=== PATIENT | female | born 1970 | race Caucasian/White ===

== ENCOUNTER 2017-01-07 13:17 | Emergency (ER) | payer OTHER ==
[~2017-01-07] VITALS: Ht 162.6 cm; Wt 97.7 kg
[~2017-01-07 13:17] MED LIST: ALPR1TAB2 PO; IBUP-1223 PO; OXYC20TA2 PO
[2017-01-07] MEDS ORDERED: ONDANSETRON 2MG/ML, 2ML IVPush ONE (15:00)
[2017-01-07] MEDS ORDERED: FAMOTIDINE 20 MG/2 ML IVP ONE (15:00)
[2017-01-07] MEDS ORDERED: SODIUM CHLORIDE FLUSH 10ML SYR IVF ONE (15:00)
[2017-01-07] MEDS ORDERED: SODIUM CHLORIDE 0.9% 1,000ML IVBOLUS ONE (15:00)
[2017-01-07] MEDS ORDERED: ONDANSETRON 2MG/ML, 2ML ONE (15:13)
[2017-01-07] MEDS ORDERED: FAMOTIDINE 20 MG/2 ML ONE (15:13)
[2017-01-07] MEDS ORDERED: ALPR2TAB2 PO (15:30)
[2017-01-07] MEDS ORDERED: LISI-170 PO (15:30)
[2017-01-07] MEDS ORDERED: HYDR25TA6 PO (15:30)
[2017-01-07] MEDS ORDERED: ZOLP10TA PO (15:30)
[2017-01-07 15:33] LABS: HEMATOCRIT 38.9 % (34.6-47.8); HEMOGLOBIN 13.1 g/dL (11.7-16.4); WHITE BLOOD COUNT 9.5 x10^3/uL (3.4-10)
[2017-01-07 15:51] LABS: ASPARTATE AMINO TRANSFERASE 17 U/L (15-37); BLOOD UREA NITROGEN 14 mg/dL (7-18)
[2017-01-07 16:30] VITALS: BP 118/78
== END 2017-01-07 16:34 | disposition home or self-care (01) ==
LOC: ED 16:20
DX: R10.12 Left upper quadrant pain (principal); R19.7 Diarrhea, unspecified; R11.2 Nausea with vomiting, unspecified; I10 Essential (primary) hypertension
CPT/HCPCS: 36415; 80053; 81003; 83690; 84703; 85025; 93005; 96361; 96374; 96375; 99285; J2405; J7030; S0028

== ENCOUNTER 2017-05-02 08:20 | Inpatient (IN) | payer OTHER ==
[~2017-05-02] VITALS: Ht 162.6 cm; Wt 98.0 kg
[~2017-05-02 08:20] MED LIST changes: +ALPR2TAB2 PO; +HYDR25TA6 PO; +LISI-170 PO; +ZOLP10TA PO
[2017-05-02] MEDS ORDERED: ONDANSETRON 2MG/ML, 2ML ONE ×2 (09:50→12:41)
[2017-05-02] MEDS ORDERED: FAMOTIDINE 20 MG/2 ML ONE (09:50)
[2017-05-02] MEDS ORDERED: ONDANSETRON 2MG/ML, 2ML IVPush ONE ×2 (10:00→13:00)
[2017-05-02] MEDS ORDERED: SODIUM CHLORIDE FLUSH 10ML SYR IVF ONE (10:00)
[2017-05-02] MEDS ORDERED: SODIUM CHLORIDE 0.9% 1,000ML IVBOLUS ONE (10:00)
[2017-05-02] MEDS ORDERED: FAMOTIDINE 20 MG/2 ML IVP ONE (10:00)
[2017-05-02 10:10] LABS: HEMATOCRIT 42.7 % (34.6-47.8); HEMOGLOBIN 14.6 g/dL (11.7-16.4); WHITE BLOOD COUNT 15.2 x10^3/uL (3.4-10)
[2017-05-02 10:13] LABS: BLOOD UREA NITROGEN 37 mg/dL (7-18)
[2017-05-02 10:16] LABS: ASPARTATE AMINO TRANSFERASE 10 U/L (15-37)
[2017-05-02] MEDS ORDERED: POTASSIUM CHLORIDE 10% 20 MEQ/15 ML UDC ONE (11:55)
[2017-05-02] MEDS ORDERED: POTASSIUM CHLORIDE 10% 40 MEQ/30 ML UDC PO ONE (12:00)
[2017-05-02] MEDS ORDERED: MAGNESIUM SULFATE 1 GM in SODIUM CHLORIDE 0.9% 50 ML IV ONE (12:00)
[2017-05-02] MEDS ORDERED: POTASSIUM CHLORIDE 40 MEQ in SODIUM CHLORIDE 0.9% 1,000 ML IV ONE (14:16)
[2017-05-02] MEDS ORDERED: NS + 40MEQ KCL 1,000 ML IV ONE (14:31)
[2017-05-02] MEDS ORDERED: PROMETHAZINE 25 MG/ML, 1ML ONE (14:48)
[2017-05-02] MEDS ORDERED: KETOROLAC 30 MG/1 ML ONE (14:49)
[2017-05-02] MEDS ORDERED: PROMETHAZINE 25 MG/ML, 1ML IM ONE (15:00)
[2017-05-02] MEDS ORDERED: KETOROLAC 30 MG/1 ML IVPush ONE (15:00)
[2017-05-02] MEDS ORDERED: SODIUM CHLORIDE 0.9% 1,000 ML IV SCH (15:32)
[2017-05-02] MEDS ORDERED: PROMETHAZINE 12.5 MG SUPP PR PRN (16:00)
[2017-05-02] MEDS ORDERED: ACETAMINOPHEN 325 MG TABLET PO PRN (16:00)
[2017-05-02] MEDS ORDERED: LABETALOL 5MG/ML, 20ML IVPush PRN (16:00)
[2017-05-02] MEDS ORDERED: ONDANSETRON ODT 4 MG PO PRN (16:00)
[2017-05-02] MEDS ORDERED: DOCUSATE 100 MG CAPSULE PO PRN (16:00)
[2017-05-02] MEDS ORDERED: ONDANSETRON 2MG/ML, 2ML IVPush PRN (16:00)
[2017-05-02] MEDS ORDERED: PHARMACY MAY ADJ FOR RENAL FX MC PRN (16:00)
[2017-05-02 18:28] VITALS: BP 129/78
[2017-05-02] MEDS: NS + 40MEQ KCL 1,000 ML IV SCH (20:56)
[2017-05-02] MEDS: HEPARIN 5,000 UNITS/ML, 1ML SQ SCH (21:05)
[2017-05-02] MEDS: FAMOTIDINE 20 MG/2 ML IVPush SCH (21:06)
[2017-05-02] MEDS: ZOLPIDEM 10MG TABLET PO PRN (21:06)
[2017-05-03 01:32] VITALS: BP 95/60
[2017-05-03] MEDS: HEPARIN 5,000 UNITS/ML, 1ML SQ SCH ×3 (05:05→23:00)
[2017-05-03 05:36] LABS: HEMATOCRIT 37.6 % (34.6-47.8); HEMOGLOBIN 12.7 g/dL (11.7-16.4); WHITE BLOOD COUNT 9.4 x10^3/uL (3.4-10)
[2017-05-03 05:39] LABS: BLOOD UREA NITROGEN 24 mg/dL (7-18)
[2017-05-03 06:59] VITALS: BP 152/95
[2017-05-03] MEDS: NS + 40MEQ KCL 1,000 ML IV SCH (10:20)
[2017-05-03] MEDS: FAMOTIDINE 20 MG/2 ML IVPush SCH ×2 (10:21→20:38)
[2017-05-03 13:09] VITALS: BP 100/69
[2017-05-03] MEDS: SODIUM CHLORIDE 0.9% 1,000 ML IV SCH (17:05)
[2017-05-03] MEDS ORDERED: FLU VACC QS2017-18 (36MOS+) UP/PF 0.5 ML IM-VACC ONE (17:30)
[2017-05-03 19:31] VITALS: BP 128/78
[2017-05-03] MEDS: ZOLPIDEM 10MG TABLET PO PRN (20:38)
[2017-05-04 00:38] VITALS: BP 120/80
[2017-05-04] MEDS: SODIUM CHLORIDE 0.9% 1,000 ML IV SCH (02:33)
[2017-05-04 05:54] LABS: ASPARTATE AMINO TRANSFERASE 8 U/L (15-37); BLOOD UREA NITROGEN 14 mg/dL (7-18)
[2017-05-04 05:56] LABS: HEMATOCRIT 32.9 % (34.6-47.8); HEMOGLOBIN 11.1 g/dL (11.7-16.4); WHITE BLOOD COUNT 9.3 x10^3/uL (3.4-10)
[2017-05-04] MEDS: HEPARIN 5,000 UNITS/ML, 1ML SQ SCH (07:27)
[2017-05-04] MEDS: FAMOTIDINE 20 MG/2 ML IVPush SCH (07:28)
[2017-05-04 07:56] VITALS: BP 109/69
== END 2017-05-04 12:37 | disposition home or self-care (01) | DRG 391 ==
LOC: ED 10:47 → EDIP 15:32 → 3NE 16:37
PROVIDERS: ADMIT Internal Medicine; ATTEND Internal Medicine
DX: K52.9 Noninfective gastroenteritis and colitis, unspecified (principal); N17.0 Acute kidney failure with tubular necrosis; E87.1 Hypo-osmolality and hyponatremia; E87.6 Hypokalemia; E86.0 Dehydration; D72.829 Elevated white blood cell count, unspecified; F12.90 Cannabis use, unspecified, uncomplicated; F17.210 Nicotine dependence, cigarettes, uncomplicated; F41.9 Anxiety disorder, unspecified; G47.00 Insomnia, unspecified; I10 Essential (primary) hypertension; K21.9 Gastro-esophageal reflux disease without esophagitis; G89.29 Other chronic pain; R11.2 Nausea with vomiting, unspecified
CPT/HCPCS: 36415; 74020; 74176; 80048; 80053; 81003; 83690; 83735; 84100; 84703; 85025; 90686; 96361; 96365; 96366; 96367; 96375; 96376; J1644; J1885; J2405; J2550; J3475; J3480; J7030; S0028

== ENCOUNTER 2017-05-06 05:05 | Emergency (ER) | payer SELFPAY ==
[~2017-05-06] VITALS: Ht 162.6 cm; Wt 90.9 kg
[2017-05-06] MEDS ORDERED: ONDANSETRON 2MG/ML, 2ML ONE (05:51)
[2017-05-06] MEDS ORDERED: FAMOTIDINE 20 MG/2 ML ONE (05:51)
[2017-05-06 05:59] LABS: HEMATOCRIT 41.1 % (34.6-47.8); HEMOGLOBIN 14.2 g/dL (11.7-16.4); WHITE BLOOD COUNT 11.5 x10^3/uL (3.4-10)
[2017-05-06] MEDS ORDERED: HYDROmorphone 2 MG/ML, 1ML IVPush PRN (06:00)
[2017-05-06] MEDS ORDERED: FAMOTIDINE 20 MG/2 ML IVP ONE (06:00)
[2017-05-06] MEDS ORDERED: ONDANSETRON 2MG/ML, 2ML IVPush ONE (06:00)
[2017-05-06] MEDS ORDERED: SODIUM CHLORIDE 0.9% 1,000ML IVBOLUS ONE (06:00)
[2017-05-06] MEDS ORDERED: SODIUM CHLORIDE FLUSH 10ML SYR IVF ONE (06:00)
[2017-05-06 06:04] LABS: BLOOD UREA NITROGEN 12 mg/dL (7-18)
[2017-05-06 06:11] LABS: ASPARTATE AMINO TRANSFERASE 12 U/L (15-37)
[2017-05-06] MEDS ORDERED: MAALOX/HYOSCYAMINE/LIDOCAINE 45 ML BTL PO ONE (06:30)
[2017-05-06 06:43] LABS: PATH.CAST-FLAG NOT PRESENT; SPERM-FLAG NOT PRESENT; SRC-FLAG NOT PRESENT; XTAL-FLAG NOT PRESENT; YLC-FLAG NOT PRESENT
[2017-05-06] MEDS ORDERED: DIPHENHYDRAMINE 50 MG/ML, 1ML ONE (07:42)
[2017-05-06] MEDS ORDERED: PROCHLORPERAZINE 5 MG/ML, 2ML ONE (07:42)
[2017-05-06] MEDS ORDERED: MAALOX/HYOSCYAMINE/LIDOCAINE 45 ML BTL ONE (07:43)
[2017-05-06] MEDS ORDERED: DIPHENHYDRAMINE 50 MG/ML, 1ML IVPush ONE (08:00)
[2017-05-06] MEDS ORDERED: PROCHLORPERAZINE 5 MG/ML, 2ML IVPush ONE (08:00)
[2017-05-06 08:57] VITALS: BP 171/97
== END 2017-05-06 09:13 | disposition home or self-care (01) ==
LOC: ED 07:16
DX: G89.29 Other chronic pain (principal); R10.33 Periumbilical pain; I10 Essential (primary) hypertension
CPT/HCPCS: 36415; 76700; 80053; 81001; 83690; 84703; 85025; 96361; 96374; 96375; 99285; J0780; J1200; J2405; J7030; S0028

== ENCOUNTER 2017-05-31 11:41 | Emergency (ER) | payer SELFPAY ==
[~2017-05-31] VITALS: Ht 162.6 cm; Wt 98.2 kg
[2017-05-31 11:42] VITALS: BP 167/90
[2017-05-31] MEDS ORDERED: KETOROLAC 30 MG/1 ML ONE (11:59)
[2017-05-31] MEDS ORDERED: HYDROcodone/APAP 10/325 MG TABLET ONE (11:59)
[2017-05-31] MEDS ORDERED: ONDANSETRON ODT 4 MG ONE (11:59)
[2017-05-31] MEDS ORDERED: ONDANSETRON ODT 4 MG PO ONE (12:00)
[2017-05-31] MEDS ORDERED: KETOROLAC 30 MG/1 ML IM ONE (12:00)
[2017-05-31] MEDS ORDERED: HYDROcodone/APAP 10/325 MG TABLET PO ONE (12:00)
== END 2017-05-31 13:45 | disposition home or self-care (01) ==
LOC: ED 12:15
DX: S83.92XA Sprain of unspecified site of left knee, initial encounter (principal); S70.01XA Contusion of right hip, initial encounter; F17.210 Nicotine dependence, cigarettes, uncomplicated; W01.0XXA Fall on same level from slipping, tripping and stumbling without subsequent striking against object, initial encounter; Y93.89 Activity, other specified; Y92.099 Unspecified place in other non-institutional residence as the place of occurrence of the external cause; Y99.8 Other external cause status
CPT/HCPCS: 73502; 73564; 96372; 99284; J1885; Q0162

== ENCOUNTER 2018-07-29 17:17 | Emergency (ER) | payer OTHER ==
[~2018-07-29] VITALS: Ht 162.6 cm; Wt 100.0 kg
[2018-07-29 17:20] VITALS: BP 157/109
== END 2018-07-29 18:31 | disposition home or self-care (01) ==
LOC: ED 18:25
DX: J02.9 Acute pharyngitis, unspecified (principal); J04.0 Acute laryngitis; J01.90 Acute sinusitis, unspecified
CPT/HCPCS: 71045; 87081; 87880; 99284

== ENCOUNTER 2019-07-13 16:32 | Emergency (ER) | payer SELFPAY ==
[~2019-07-13] VITALS: Ht 162.6 cm; Wt 104.7 kg
[2019-07-13 17:21] VITALS: BP 179/81
[2019-07-13 17:56] LABS: RAPID INFLUENZA A Negative (Negative); RAPID INFLUENZA B Negative (Negative)
--- NOTE | 2019-07-13 18:39 | NUR ---
Patient given discharge instructions and they have confirmed that they understand the instructions. Patient ambulatory with steady gait. Pt left with d/c paperwork, Rx, and all personal belongings.
== END 2019-07-13 18:46 | disposition home or self-care (01) ==
LOC: ED 18:15
DX: J18.0 Bronchopneumonia, unspecified organism (principal); I10 Essential (primary) hypertension; K21.9 Gastro-esophageal reflux disease without esophagitis
CPT/HCPCS: 71046; 87400; 99284

== ENCOUNTER 2019-08-04 17:36 | Emergency (ER) | payer OTHER ==
[~2019-08-04] VITALS: Ht 162.6 cm; Wt 106.6 kg
[2019-08-04] MEDS ORDERED: SODIUM CHLORIDE FLUSH 10ML SYR IVF ONE (18:00)
[2019-08-04 18:27] LABS: BASOPHILS # (AUTO) 0.04 x10^3/uL (0-0.1); BASOPHILS % (AUTO) 0 % (0-1); EOSINOPHILS # (AUTO) 0.32 x10^3/uL (0-0.4); EOSINOPHILS % (AUTO) 3 % (1-7); LYMPHOCYTES # (AUTO) 2.82 x10^3/uL (1-3.4); LYMPHOCYTES % (AUTO) 28 % (22-44); MD NO; MEAN CORPUSCULAR HEMOGLOBIN 26.7 pg (27.0-34.8); MEAN CORPUSCULAR HGB CONC 33.2 g/dL (32.4-35.8); MEAN CORPUSCULAR VOLUME 80.4 fL (80-100); MEAN PLATELET VOLUME 8.7 fL (7.4-10.4); MONOCYTES # (AUTO) 0.65 x10^3/uL (0.2-0.8); MONOCYTES % (AUTO) 7 % (2-9); NEUTROPHILS % (AUTO) 61 % (42-75); PLATELET COUNT 278 x10^3/uL (130-400); RED BLOOD COUNT 4.63 x10^6/uL (3.82-5.3)
[2019-08-04 18:34] LABS: ANION GAP 6 mmol/L (5-15); CALCIUM 9.1 mg/dL (8.5-10.1); CHLORIDE 109 mmol/L (98-107); CREATININE 0.65 mg/dL (0.55-1.02)
[2019-08-04 18:35] LABS: ALANINE AMINOTRANSFERASE 36 U/L (12-78); ALBUMIN 3.3 g/dL (3.4-5.0)
--- NOTE | 2019-08-04 18:37 | NUR ---
LEADER WRITER: PT TO ROOM FROM [facility]
[2019-08-04 18:39] LABS: ALKALINE PHOSPHATASE 98 U/L (45-117); BILIRUBIN,TOTAL < 0.1 mg/dL (0.2-1.0); TOTAL PROTEIN 7.6 g/dL (6.4-8.2); TROPONIN I < 0.015 ng/mL (0.000-0.045)
--- NOTE | 2019-08-04 19:11 | NUR ---
REPORT FROM BRITTANIE CHEUNG.
[2019-08-04] MEDS ORDERED: ALBUTEROL/IPRATROPIUM 2.5MG/0.5MG, 3 ML NPPB ONE (19:30)
--- NOTE | 2019-08-04 19:32 | NUR ---
MEDICATED PER JUL. RT AT BEDSIDE FOR BREATHING TREATMENT.
[2019-08-04] MEDS ORDERED: ALBUTEROL/IPRATROPIUM 2.5MG/0.5MG, 3 ML ONE (19:45)
[2019-08-04 20:11] VITALS: BP 140/90
== END 2019-08-04 21:03 | disposition home or self-care (01) ==
LOC: ED 20:45
DX: J20.8 Acute bronchitis due to other specified organisms (principal); I10 Essential (primary) hypertension; K21.9 Gastro-esophageal reflux disease without esophagitis; M06.9 Rheumatoid arthritis, unspecified; F17.200 Nicotine dependence, unspecified, uncomplicated
CPT/HCPCS: 36415; 71045; 80053; 83880; 84484; 85025; 94640; 99284; J7512

== ENCOUNTER 2019-11-23 23:04 | Emergency (ER) | payer SELFPAY ==
[~2019-11-23] VITALS: Ht 162.6 cm; Wt 111.4 kg
[2019-11-23 23:10] VITALS: BP 188/79
--- NOTE | 2019-11-23 23:39 | NUR ---
patient steadily ambulated to room,she has a hoarse voice. she reports symptoms started 3 weeks ago but she didnt get seen because it was slightly getting better until . patient reported tonight she took advil around 2129 with no relief and took a neb tx, she reported at that time she started to have "really bad anxiety and sob" so she came into the er. patient is maintaining airway. she reports she has a hx of reccurent laryngitis
== END 2019-11-24 00:42 | disposition home or self-care (01) ==
LOC: ED 23:36
DX: J04.0 Acute laryngitis (principal); R49.1 Aphonia; I10 Essential (primary) hypertension; K21.9 Gastro-esophageal reflux disease without esophagitis
CPT/HCPCS: 70360; 99283; J7512